=== PATIENT | female | born 1995 | race Caucasian/White ===

== ENCOUNTER 2022-12-19 19:40 | Emergency (ER) | payer OTHER ==
[~2022-12-19] VITALS: Ht 160 cm; Wt 89.3 kg
[2022-12-19 22:28] LABS: BASO # 0.1 10^3/uL (0.0-0.2); BASO % 0.6 % (0.0-1.0); EOS # 0.5 10^3/uL (0.0-0.5); EOS % 3.6 % (0.0-3.0); HEMATOCRIT 41.9 % (36.0-47.0); HEMOGLOBIN 14.1 g/dl (12.0-15.5); LYMPH # 4.1 10^3/uL (1.5-5.0); LYMPH % 28.9 % (24.0-44.0); MEAN CORPUSCULAR HEMOGLOBIN 30.5 pg (27.0-33.0); MEAN CORPUSCULAR HGB CONC 33.7 g/dl (32.0-36.5); MEAN CORPUSCULAR VOLUME 90.5 fl (80.0-96.0); MONO # 0.7 10^3/uL (0.0-0.8); MONO % 4.6 % (2.0-8.0); NEUTROPHILS # 8.9 10^3/uL (1.5-8.5); NEUTROPHILS % 62.1 % (36.0-66.0); PLATELET COUNT, AUTOMATED 263 10^3/uL (150-450); RED BLOOD COUNT 4.63 10^6/uL (4.00-5.40); WHITE BLOOD COUNT 14.3 10^3/uL (4.0-10.0)
[2022-12-20] MEDS ORDERED: CIPROFLOXACIN 500MG TABLET PO ONE (00:25)
[2022-12-20] MEDS ORDERED: CIPR-249 PO (00:29)
[2022-12-20 00:43] VITALS: BP 146/76
== END 2022-12-20 00:47 | disposition home or self-care (01) ==
LOC: M ED 19:40
DX: N10 Acute pyelonephritis (principal); F41.9 Anxiety disorder, unspecified; F32.A Depression, unspecified; Z87.442 Personal history of urinary calculi; Z88.0 Allergy status to penicillin

== ENCOUNTER → 2023-02-15 | Outpatient (CLI) | payer OTHER ==
[~2023-02-15] MED LIST: CIPR-249 PO
== END ==
LOC: M LAB 11:59
PROVIDERS: ATTEND Physician Assistant
DX: N94.6 Dysmenorrhea, unspecified (principal); N92.0 Excessive and frequent menstruation with regular cycle

== ENCOUNTER → 2024-03-11 | Outpatient (REF) | payer OTHER | LOC: M PLALAB 15:16 | PROVIDERS: ATTEND Advanced Practice Midwife | DX: Z34.81 Encounter for supervision of other normal pregnancy, first trimester (principal); Z53.9 Procedure and treatment not carried out, unspecified reason ==

== ENCOUNTER → 2024-03-21 | Outpatient (CLI) | payer OTHER ==
[2024-03-21 18:39] LABS: HEMATOCRIT 36.6 % (36.0-47.0); HEMOGLOBIN 12.1 g/dl (12.0-15.5); MEAN CORPUSCULAR HEMOGLOBIN 29.3 pg (27.0-33.0); MEAN CORPUSCULAR HGB CONC 33.1 g/dl (32.0-36.5); MEAN CORPUSCULAR VOLUME 88.6 fl (80.0-96.0); PLATELET COUNT, AUTOMATED 266 10^3/uL (150-450); RED BLOOD COUNT 4.13 10^6/uL (4.00-5.40)
[2024-03-21 19:31] LABS: HIV 1&2 SCREEN NEGATIVE (NEGATIVE)
[2024-03-21 19:39] LABS: HEPATITIS C VIRUS ABY INDEX < 0.02 INDEX (<0.8)
[2024-03-21 20:31] LABS: GC DNA AMPLIFICATION NEGATIVE (NEGATIVE)
== END ==
LOC: M PLALAB 15:39
PROVIDERS: ATTEND Advanced Practice Midwife
DX: Z34.81 Encounter for supervision of other normal pregnancy, first trimester (principal)

== ENCOUNTER → 2024-04-02 | Outpatient (CLI) | payer OTHER | LOC: M PLALAB 11:48 | PROVIDERS: ATTEND Advanced Practice Midwife | DX: Z34.82 Encounter for supervision of other normal pregnancy, second trimester (principal) ==

== ENCOUNTER → 2024-05-20 | Outpatient (CLI) | payer OTHER | LOC: M WHC 10:01 | PROVIDERS: ATTEND Advanced Practice Midwife | DX: Z34.82 Encounter for supervision of other normal pregnancy, second trimester (principal); Z3A.20 20 weeks gestation of pregnancy ==

== ENCOUNTER → 2024-07-03 | Outpatient (CLI) | payer OTHER ==
[2024-07-03 16:24] LABS: GLUCOSE CHALLENGE TEST 1 HOUR 104 MG/DL (LESS THAN 140)
[2024-07-03 16:26] LABS: HEMATOCRIT 37.1 % (36.0-47.0); HEMOGLOBIN 12.3 g/dl (12.0-15.5); MEAN CORPUSCULAR HEMOGLOBIN 29.6 pg (27.0-33.0); MEAN CORPUSCULAR HGB CONC 33.2 g/dl (32.0-36.5); MEAN CORPUSCULAR VOLUME 89.2 fl (80.0-96.0); PLATELET COUNT, AUTOMATED 256 10^3/uL (150-450); RED BLOOD COUNT 4.16 10^6/uL (4.00-5.40); WHITE BLOOD COUNT 15.1 10^3/uL (4.0-10.0)
[2024-07-03 16:59] LABS: GC DNA AMPLIFICATION NEGATIVE (NEGATIVE)
[2024-07-03 17:00] LABS: HIV 1&2 SCREEN NEGATIVE (NEGATIVE)
[2024-07-03 17:08] LABS: HEPATITIS C VIRUS ABY INDEX 0.16 INDEX (<0.8)
== END ==
LOC: M PLALAB 12:22
PROVIDERS: ATTEND Specialist
DX: Z34.82 Encounter for supervision of other normal pregnancy, second trimester (principal)

== ENCOUNTER → 2024-07-19 | Outpatient (CLI) | payer OTHER | LOC: M WHC 06:57 | PROVIDERS: ATTEND Specialist | DX: Z34.82 Encounter for supervision of other normal pregnancy, second trimester (principal) ==

== ENCOUNTER → 2024-09-12 | Outpatient (REF) | payer OTHER ==
[~2024-09-12] MED LIST changes: +ACET-683 PO; +FLON1SPR NARES; +IBUP80TA PO; +PEPC1TAB5 PO; +PRENTAB9 PO
== END ==
LOC: M SFHCWAGY 17:19
PROVIDERS: ATTEND Obstetrics & Gynecology
DX: O41.03X0 Oligohydramnios, third trimester, not applicable or unspecified (principal); O99.343 Other mental disorders complicating pregnancy, third trimester; F41.9 Anxiety disorder, unspecified; F32.A Depression, unspecified; O99.353 Diseases of the nervous system complicating pregnancy, third trimester; M79.7 Fibromyalgia; O99.613 Diseases of the digestive system complicating pregnancy, third trimester; K58.9 Irritable bowel syndrome, unspecified; O26.893 Other specified pregnancy related conditions, third trimester; G56.03 Carpal tunnel syndrome, bilateral upper limbs; O99.213 Obesity complicating pregnancy, third trimester; E66.9 Obesity, unspecified; Z3A.36 36 weeks gestation of pregnancy; Z88.0 Allergy status to penicillin; Z80.7 Family history of other malignant neoplasms of lymphoid, hematopoietic and related tissues; Z87.891 Personal history of nicotine dependence

== ENCOUNTER → 2024-09-12 | Outpatient (CLI) | payer OTHER | LOC: M RAD 14:19 | PROVIDERS: ATTEND Obstetrics & Gynecology | DX: O41.03X0 Oligohydramnios, third trimester, not applicable or unspecified (principal); Z3A.36 36 weeks gestation of pregnancy ==

== ENCOUNTER → 2024-09-19 | Outpatient (CLI) | payer OTHER ==
[2024-09-19 17:47] LABS: HEMATOCRIT 38.2 % (36.0-47.0); HEMOGLOBIN 12.6 g/dl (12.0-15.5); LDH LACTATE DEHYDROGENASE 188 U/L (120-246); MEAN CORPUSCULAR HEMOGLOBIN 28.4 pg (27.0-33.0); MEAN CORPUSCULAR VOLUME 86.2 fl (80.0-96.0); PLATELET COUNT, AUTOMATED 227 10^3/uL (150-450); RED BLOOD COUNT 4.43 10^6/uL (4.00-5.40); WHITE BLOOD COUNT 14.5 10^3/uL (4.0-10.0)
[2024-09-19 17:54] LABS: ALT/SGPT 13 U/L (7.0-40); AST/SGOT 17 U/L (<34); BILIRUBIN,TOTAL 0.3 MG/DL (0.3-1.2); CREATININE FOR GFR 0.61 MG/DL (0.55-1.30); GLOMERULAR FILTRATION RATE > 60.0 (>60)
[2024-09-19 18:00] LABS: TOTAL PROTEIN,RANDOM URINE 21.4 MG/DL (0.0-14.0)
[2024-09-19 18:05] LABS: CREATININE,RANDOM URINE 125.6 MG/DL
[2024-09-19 18:08] LABS: URIC ACID 5.3 MG/DL (3.1-7.8)
== END ==
LOC: M PLALAB 14:49
PROVIDERS: ATTEND Nurse Practitioner Family
DX: R03.0 Elevated blood-pressure reading, without diagnosis of hypertension (principal)

== ENCOUNTER 2024-09-21 09:56 | Inpatient (IN) | payer OTHER ==
[2024-09-21] VITALS (9 sets, daily range): BP systolic 126–147; BP diastolic 66–95
[~2024-09-21] VITALS: Ht 160 cm; Wt 113.0 kg
[~2024-09-21 09:56] MED LIST changes: -ACET-683 PO; -FLON1SPR NARES; -IBUP80TA PO; -PEPC1TAB5 PO; -PRENTAB9 PO
[2024-09-21] MEDS ORDERED: PEPC1TAB5 PO (10:37)
[2024-09-21] MEDS ORDERED: PRENTAB9 PO (10:37)
[2024-09-21] MEDS ORDERED: FLON1SPR NARES (10:39)
[2024-09-21 11:23] LABS: HEMATOCRIT 38.8 % (36.0-47.0); MEAN CORPUSCULAR HEMOGLOBIN 28.9 pg (27.0-33.0); MEAN CORPUSCULAR HGB CONC 33.5 g/dl (32.0-36.5); MEAN CORPUSCULAR VOLUME 86.2 fl (80.0-96.0); PLATELET COUNT, AUTOMATED 244 10^3/uL (150-450); WHITE BLOOD COUNT 13.6 10^3/uL (4.0-10.0)
[2024-09-21 11:42] LABS: URIC ACID 5.9 MG/DL (3.1-7.8)
[2024-09-21 11:44] LABS: LDH LACTATE DEHYDROGENASE 211 U/L (120-246)
[2024-09-21 11:45] LABS: ALT/SGPT 15 U/L (7.0-40); AST/SGOT 22 U/L (<34); BILIRUBIN,TOTAL 0.4 MG/DL (0.3-1.2); CREATININE FOR GFR 0.64 MG/DL (0.55-1.30); GLOMERULAR FILTRATION RATE > 60.0 (>60)
[2024-09-21] MEDS: miSOPROStol 50MCG 1/2 TABLET PO SCH (11:57)
[2024-09-21 12:14] LABS: HIV 1&2 SCREEN NEGATIVE (NEGATIVE)
[2024-09-21 18:10] LABS: TOTAL PROTEIN,RANDOM URINE 33.6 MG/DL (0.0-14.0)
[2024-09-21 18:15] LABS: CREATININE,RANDOM URINE 240.2 MG/DL
[2024-09-21] MEDS: PROMETHAZINE 25MG/ML 1ML VIAL IV PRN (22:43)
[2024-09-21] MEDS: BUTORPHANOL 2 MG/ML 1ML VIAL IV ONE (22:44)
[2024-09-22] VITALS (43 sets, daily range): BP systolic 109–182; BP diastolic 59–108; O2SAT 98
[2024-09-22] MEDS: OXYTOCIN DRIP 30 UNITS in IV 1 EA IV SCH ×2 (05:38→19:29)
[2024-09-22] MEDS: LR 1,000 ML IV SCH (05:39)
[2024-09-22] MEDS ORDERED: EPIDURAL/PCA KEYS XX PRN (13:05)
[2024-09-22] MEDS ORDERED: NALOXONE INJ 0.4MG/1ML VIAL IV PRN (13:05)
[2024-09-22] MEDS ORDERED: LR 500 ML IV PRN (13:05)
[2024-09-22] MEDS ORDERED: diphenhydrAMINE 50MG/ML VIAL IV PRN (13:05)
[2024-09-22] MEDS ORDERED: ONDANSETRON 4MG 2ML VIAL IV PRN ×2 (13:05→21:20)
[2024-09-22] MEDS ORDERED: ePHEDrine SULFATE 25 MG/5 ML(5MG/ML) SYRINGE IVP PRN (13:05)
[2024-09-22] MEDS: FENTANYL/ROPIVACAINE/NACL BAG 100 ML EPIDURAL SCH (13:10)
[2024-09-22] MEDS: TRANEXAMIC ACID INJection 1,000 MG in NS 100 ML IV PRN (19:53)
[2024-09-22] MEDS ORDERED: ACETAMINOPHEN 325 MG TAB PO PRN (21:20)
[2024-09-22] MEDS ORDERED: CALCIUM CARBONATE 500 MG CHEW U/D PO PRN (21:20)
[2024-09-22] MEDS ORDERED: DOCUSATE SODIUM 100MG CAPSULE PO PRN (21:20)
[2024-09-22] MEDS ORDERED: ANUSOL HC CREAM 30GM TOP PRN (21:20)
[2024-09-22] MEDS ORDERED: RHOGAM 300MCG (1500IU) INJ IM SCH (21:20)
[2024-09-22] MEDS ORDERED: MOM 30ML SUSPENSION UDC PO PRN (21:20)
[2024-09-22] MEDS: ceFAZolin SOD 2 GM in IV 1 EA IV ONE (21:29)
[2024-09-22] MEDS: IBUPROFEN 800 MG TAB PO PRN (22:34)
[2024-09-22] MEDS: ACETAMINOPHEN 500 MG TAB PO PRN (22:34)
[2024-09-23 06:08] VITALS: BP 120/73; O2SAT 97
[2024-09-23] MEDS: DIBUCAINE 1% OINTMENT 30GM TOP PRN (08:21)
[2024-09-23] MEDS: IBUPROFEN 600MG TAB PO PRN (08:21)
[2024-09-23] MEDS: PRENATAL VITAMINS CHEWABLE TABLET PO SCH (08:21)
[2024-09-23] MEDS ORDERED: IBUP80TA PO (09:18)
[2024-09-23] MEDS ORDERED: ACET-683 PO (09:18)
[2024-09-23 18:00] VITALS: BP 144/85; O2SAT 96
[2024-09-24 06:00] VITALS: BP 136/75; O2SAT 97
[2024-09-24] MEDS ORDERED: MEASLES,MUMPS,RUBELLA VACCINE INJ (MMR-II) SC.IMMUN ONE (09:00)
== END 2024-09-24 15:10 | disposition home or self-care (01) | DRG 807 ==
LOC: M LDI 09:56 → M OBS 09-22 22:45
PROVIDERS: ADMIT Obstetrics & Gynecology; ATTEND Obstetrics & Gynecology
PROC: 3E0P7GC Introduction of Other Therapeutic Substance into Female Reproductive, Via Natural or Artificial Opening (ICD-10-PCS; 2024-09-21)
PROC: 10D17Z9 Manual Extraction of Products of Conception, Retained, Via Natural or Artificial Opening (ICD-10-PCS; principal; 2024-09-22)
PROC: 10E0XZZ Delivery of Products of Conception, External Approach (ICD-10-PCS; 2024-09-22)
PROC: 0HQ9XZZ Repair Perineum Skin, External Approach (ICD-10-PCS; 2024-09-22)
PROC: 3E033VJ Introduction of Other Hormone into Peripheral Vein, Percutaneous Approach (ICD-10-PCS; 2024-09-22)
DX: O13.4 Gestational [pregnancy-induced] hypertension without significant proteinuria, complicating childbirth (principal); Z37.0 Single live birth; O73.0 Retained placenta without hemorrhage; O70.0 First degree perineal laceration during delivery; Z3A.37 37 weeks gestation of pregnancy; Z88.0 Allergy status to penicillin

== ENCOUNTER → 2025-03-04 | Outpatient (REF) | payer OTHER ==
[~2025-03-04] MED LIST changes: +ACET-683 PO; +FLON1SPR NARES; +IBUP80TA PO; +PEPC1TAB5 PO; +PRENTAB9 PO
[2025-03-06 14:22] LABS: HPV APTIMA Not Detected (Not Detected)
== END ==
LOC: M PLALAB 11:41
PROVIDERS: ATTEND Obstetrics & Gynecology
DX: Z12.4 Encounter for screening for malignant neoplasm of cervix (principal); R87.610 Atypical squamous cells of undetermined significance on cytologic smear of cervix (ASC-US)
CPT/HCPCS: 87624; G0123